=== PATIENT | female | born 1985 | race Caucasian/White ===

== ENCOUNTER → 2017-06-05 23:55 | Observation (INO) ==
--- NOTE | 2017-06-05 18:46 | OB/GYN History & Physical ---
Date of Encounter: 06/05/17 Time of Encounter: 18:40 Assessment and Plan (1) 36 weeks gestation of Current visit: Yes Status: Acute monitoring, recheck for cervical change at 2 hour intervals (2) History of delivery, currently in third trimester Current visit: Yes Status: Acute (3) Grand multipara Current visit: Yes Status: Acute History of Present Illness Chief complaint: increased contractions HPI: Ms. Ashton is a 31 year old female at 36.5 weeks gestation with a history of deliveries at 36 weeks in 5 of her 6 children who presents for increased contractions, abdominal and back pain. She denies loss of fluid, vaginal bleeding, dizziness, headache, blurred vision. Reports good movement. Labs: GBS negative, rubella immune, all other labs wnl Past Med Surg Social Fam HX - Past Medical History Medical history: cancer, other Psychiatric history: no psych history - Past Surgical History Surgical History: other - Social History Smoking Status: Never smoker Smokeless Tobacco Status: No Alcohol use: none Drug use: none - Family History Mother Adopted: No Age: 52 Family Member Ethnicity: Non- Living Status: Still Living Hx Family Cardiac Disorders: No Hx Family Respiratory Disorders: No Hx Family Cancer: No Hx Family GI Disorders: Yes (chron's disease and colitis) Hx Family Genitourinary Disorders: No Hx Family Endocrine Disorder: No Hx Family Musculoskeletal Disorders: No Hx Family Neuromuscular Disorders: No Hx Family Neurologic Disorders: No Hx Family HEENT Disorders: No Hx Family Autoimmune Disorders: No Hx Family Reproductive Disorders: No Hx Family Psychosocial Disorders: No Hx Family Medical Disorders: No Obstetrical History - Pregnancies : 8 Para: 6 Term: 1 : 5 Ab's: 1 Livin Medications and Allergies Vit #105/Iron/FA/Dha 1 tab PO DAILY 06/05/17 [History] Allergies No Known Allergies Allergy (Verified 11/15/16 20:05) Review of System OB - Constitutional Constitutional ROS IM: as per HPI Exam - Constitutional Constitutional: well developed, well nourished, no acute distress, average body habitus - HEENT HEENT: Normocephaly, Mucus Membranes Moist - Neck Neck exam: normal inspection - Lungs Respiratory exam: CTAB - Cardiovascular Cardiovascular exam: RRR, +S1, +S2 - Breasts Breast: bilateral: normal - Abdomen Abdomen: Present: bowel sounds normal, gravid, non tender - Extremities Extremities exam: normal capillary refill, normal inspection - Cervix Dilation: 3 Effacement: 50 Station: -3 Results All other labs normal.
--- NOTE | 2017-06-05 23:52 | OB/GYN Progress Note ---
Date of Encounter: 06/05/17 Time of Encounter: 23:50 - Assessment and Plan (1) 36 weeks gestation of Current Visit: Yes Status: Acute discharge home (2) History of delivery, currently in third trimester Current Visit: Yes Status: Acute (3) Grand multipara Current Visit: Yes Status: Acute Subjective - Subjective Principal diagnosis: contractions Interval history: Ms. Ashton has been in L&D from 5pm until 12pm and made 1cm of change in her cervix. She would like labor at home and will come back when she feels increased intensity to her contractions. Objective - Vital Signs Vital Signs: Intake and Output 06/05/17 06/05/17 06/05/17 07:59 15:59 23:59 Other: Weight 86.7 kg Patient Weight 06/05/17 23:59 Weight 86.7 kg - Exam FHR comments: reactive FHT Auscultation: bilateral: normal Abdomen: Present: normal appearance, soft, gravid Cervical dilation: 4 Cervix effacement: 70 station: -2
== END | disposition home or self-care (01) ==
LOC: 1NENULAB
PROVIDERS: ADMIT Student in an Organized Health Care Education/Training Program; ATTEND Student in an Organized Health Care Education/Training Program

== ENCOUNTER 2017-06-07 17:43 | Inpatient (IN) ==
[~2017-06-07 17:43] MED LIST: Famotidine 20 MG/2 ML VIAL IVP PRN; Naloxone 0.4 MG/ML INJ IVP PRN; Ondansetron 4 MG/2 ML VIAL IVP PRN
[2017-06-07] MEDS ORDERED: Ringers Solution, Lactated 1,000 ML IVC SCH (17:45)
--- NOTE | 2017-06-07 17:52 | OB/GYN History & Physical ---
Date of Encounter: 06/07/17 Time of Encounter: 17:45 Assessment and Plan (1) and not yet delivered in third trimester Current visit: Yes Status: Acute (2) 37 weeks gestation of Current visit: Yes Status: Acute (3) Grand multipara Current visit: No Status: Acute (4) Active labor Current visit: Yes Status: Acute We will admit the patient plan is to anticipate vaginal delivery History of Present Illness HPI: Ms. Ashton is a 31 year old female 9 para 6026 and 37-0/7 weeks who presented to labor and delivery from the office with complaint of contractions. Patient has a history of delivering her baby is around 36 weeks and has been making cervical change. Patient was seen last in the office was 2 cm. Patient had presented to labor and delivery Wednesday complaining of contractions patient progressed to 3-4 cm did not want to stay around and went home. She was seen in the office today was noted to still be approximately 3-4 but the head appeared to be low and she was complaining of worsening contractions. She was sent to labor and delivery where she was noted to be brenda she was allowed to ambulate she was reassessed was noted to make cervical change was a good 4 cm and an hour later she was 5 cm. Patient has a history of going quickly after 4-5 cm and does not want an epidural. Patient's GBS was already performed and was negative rubella positive, Rh+ denies any leaking of fluid but states contractions every 2-3 minutes. Patient is wanting a tubal ligation papers have been signed Past Med Surg Social Fam HX - Past Medical History Source: patient, old records reviewed Medical history: cancer, other Psychiatric history: no psych history - Past Surgical History Surgical History: other (LEEP conization, dilatation and curettage) - Social History Smoking Status: Never smoker Smokeless Tobacco Status: No Alcohol use: none Drug use: none Occupational status: unemployed Current living situation: Home - Independent Activity Level: Independent ambulation Recent Out of Country Travel Within the Last 8 Weeks: No Exposure or Possible Exposure to Illness During Travel: No - Family History Mother Adopted: No Family Member Ethnicity: Non- Living Status: Still Living Hx Family Cardiac Disorders: No Hx Family Respiratory Disorders: No Hx Family Cancer: No Hx Family GI Disorders: Yes (chron's disease and colitis) Hx Family Endocrine Disorder: No Hx Family Neuromuscular Disorders: No Hx Family Neurologic Disorders: No Hx Family HEENT Disorders: No Hx Family Autoimmune Disorders: No - Additional Family History Additional family history: Family history noncontributory Obstetrical History - Pregnancies : 9 Para: 6 Term: 1 : 5 Ab's: 2 Livin Medications and Allergies Vit #105/Iron/FA/Dha 1 tab PO DAILY 06/05/17 [History] Allergies No Known Allergies Allergy (Verified 11/15/16 20:05) Review of System OB All systems PM: reviewed and no additional remarkable complaints except as stated Exam - Constitutional Constitutional: well developed, well nourished, average body habitus, moderate distress - HEENT HEENT: PERRL - Neck Neck exam: full ROM - Lungs Respiratory exam: CTAB - Cardiovascular Cardiovascular exam: RRR - Abdomen Abdomen: Present: bowel sounds normal, gravid - Cervix Dilation: 5 Effacement: 80 Station: 0 Results All other labs normal. - VTE Reasons for not Prescribing Prophylaxis: Treatment not Indicated - Low risk for VTE
[2017-06-07 18:18] LABS: Basophils % 0.2 %; Eosinophils # 0.1 K/mcL (0.0-0.6); Hematocrit 35.4 % (35.3-44.9); Hemoglobin 11.9 g/dL (11.5-15.4); Immature Granulocytes % 0.7 % (0-4); Lymphocytes # 1.5 K/mcL (0.6-4.6); Lymphocytes % 25.7 %; Mean Corpuscular HGB Conc 33.6 g/dL (31.6-35.5); Mean Corpuscular Hemoglobin 29.8 pg (28.0-33.3); Mean Corpuscular Volume 88.5 fL (83.0-100.0); Mean Platelet Volume 11.6 fL (9.4-12.4); Monocytes # 0.5 K/mcL (0.0-1.3); Monocytes % 8.6 %; Neutrophils # 3.7 K/mcL (1.6-8.9); Platelet Count 191 K/mcL (140-400); Red Cell Distribution Width 14.2 % (11.5-14.5); Segmented Neutrophils % 63.8 %
--- NOTE | 2017-06-07 18:37 | OB Labor Progress Note ---
Date of Encounter: 06/07/17 Time of Encounter: 18:30 Labor Progress Note - Subjective Subjective: states contractions are getting stronger - Cervix Cervix: 5-6/80/0 AROM large amt of fluid clear - Heart Tones Heart Tones: FHT 140's reactive - [place]: contractions every 2 min - Plan Plan: anticipate
[2017-06-07] MEDS ORDERED: miSOPROStol 100 MCG TABLET PO ONE (19:45)
--- NOTE | 2017-06-07 20:11 | OB Labor Progress Note ---
Date of Encounter: 06/07/17 Time of Encounter: 20:10 Labor Progress Note - Subjective Subjective: states feeling contraction but irregular, recommended cytotec to help get contractions regular - Cervix Cervix: 5-6/80/0 - Heart Tones Heart Tones: FHT's 140 reactive - [place]: contractions every 2 -3 min irregular - Plan Plan: will try some cytotec anticipate
[2017-06-07] MEDS ORDERED: *HR* FentaNYL (PF) 100 MCG/2 ML VIAL IVP ONE (21:30)
--- NOTE | 2017-06-07 23:07 | OB/GYN Procedure Note ---
Delivery - Delivery Date: 06/07/17 Provider: Syd [facility] Intrapartum events: none Delivery induction: none Delivery augmentation: rupture of membranes Delivery monitor: external FHT, external uterine Anesthesia: none Estimated Blood Loss: 100 - Infant (s) Infant A Delivery Date: 06/07/17 Infant Delivery Time: 22:36 Presentation: vertex Position: RL Route of delivery: Gender: Male Viability: Viable Pounds: 6 Ounces: 11 Weight Gram: 3.025 kg at 1 minute: 8 at 5 mins: 9 Shoulder Dystocia: not encountered Specimens collected: cord blood Placenta: spontaneous - Repair Episiotomy: none Laceration Description: None - Complications Delivery complications: none Delivery comments: Patient is a 31-year-old 9 para 1526 at 37-0/7 weeks who was sent from the office secondary to contractions with cervical change. Patient was seen last week in the office and was 2 cm she states she came to labor and delivery of the weekend had made cervical change her gone from 3-3-4 cm but did not want to stay in left. Patient's today in the office with a good 4 cm and was complaining a lot of back pain and contractions. Patient has a history of delivering all of her babies around 36 weeks and goes very fast. Presented to labor and delivery where she was noted to be brenda patient continued to make cervical change on first exam she was a good 4 cm and went to 5 been to 6 cm. Patient was then artificially ruptured with clear fluid. Because of some situations going on labor and delivery side this time to try to expedite her delivery 50 g of Cytotec by mouth was given to help speed up her contractions. This did work patient's contractions became more uncomfortable patient did not want an epidural patient progressed rapidly she had to 9 cm wanted to push. Throughout the patient push the cervix was reduced and patient delivered a viable male in left occiput anterior presentation at 2236. There was no nuchal cord, no meconium, infant was bulb suctioned on the abdomen, Apgars were 8 at one minutes, 9 at 5 months, weight was 6 lbs. 11 oz. 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 Perineum cervix vagina was all visualized intact. Patient recently was wanting to get a tubal ligation did recommend waiting 6 weeks and we could laparoscopically. All needles AND sponge counts were correct 3 she tolerated the delivery well. She will be observed one hour before being taken floor. - Disposition Mom disposition: stable in LDR [place] disposition: stable in LDR
[2017-06-07] MEDS ORDERED: Oxytocin 20 units/ LR 1000 mL 20 UNIT/1,000 ML BAG IVC SCH (23:42)
[2017-06-07] MEDS ORDERED: Measles/Mumps/Rubella Vacc 0.5 ML VIAL SQ PRN (23:42)
[2017-06-07] MEDS ORDERED: Acetaminophen 325 MG TABLET PO PRN (23:42)
[2017-06-08] MEDS: Ibuprofen 600 MG TABLET PO PRN ×4 (00:50→22:34)
[2017-06-08] MEDS: Prenatal Vit/FA 1 EACH TABLET PO SCH (08:33)
[2017-06-08] MEDS ORDERED: Prenatal Vit/FA 1 EACH TABLET PO SCH (09:00)
--- NOTE | 2017-06-08 09:06 | OB/GYN Progress Note ---
Date of Encounter: 06/08/17 Time of Encounter: 09:04 - Assessment and Plan (1) Status post vaginal delivery Current Visit: Yes Status: Acute Pt meeting PPD#1 milestones. Anticipate discharge home PPD#2 Subjective - Subjective Principal diagnosis: S/P Vaginal Delivery PPD1 Patient reports: voiding normally, pain well controlled, ambulating normally, other (decreased appetite, mild cramping) : doing well Objective - Latest Vital Signs Latest vital signs: Vital Signs Temp Pulse Resp BP Pulse Ox 06/08/17 08:28 97.8 F 66 16 115/71 99 06/08/17 04:59 97.9 F 74 18 115/71 95 06/08/17 02:20 98.0 F 76 16 125/80 98 06/08/17 01:20 98.2 F 87 14 120/75 98 06/08/17 00:21 97.8 F 70 16 131/83 97 Intake and Output 06/07/17 06/08/17 06/08/17 23:59 07:59 15:59 Output Total 200 / 200 Balance -200 / -200 Output: Urine 200 / 200 Other: Stool Size Small Stool Characteristics Normal for Patient Normal for Patient Weight 83.3 kg Patient Weight 06/08/17 23:59 Weight 83.3 kg - Exam Lungs: bilateral: normal Chest: Normal S1, Normal S2 Extremities: Present: normal Abdomen: Present: normal appearance Uterus: Present: normal Uterus Position: 1 Finger Above Umbilicus - Labs Labs: Laboratory Results - last 24 hr 06/07/17 18:00 WBC 5.8 RBC 4.00 Hgb 11.9 Hct 35.4 MCV 88.5 MCH 29.8 MCHC 33.6 RDW 14.2 Plt Count 191 MPV 11.6 Immature Gran % 0.7 Seg Neutrophils % 63.8 Lymphocytes % 25.7 Monocytes % 8.6 Eosinophils % 1.0 Basophils % 0.2 Neutrophils # 3.7 Lymphocytes # 1.5 Monocytes # 0.5 Eosinophils # 0.1 Basophils # 0.0
[2017-06-09 08:25] VITALS: BP 117/84
[2017-06-09] MEDS: Prenatal Vit/FA 1 EACH TABLET PO SCH (08:36)
[2017-06-09] MEDS: Ibuprofen 600 MG TABLET PO PRN (08:37)
--- NOTE | 2017-06-09 10:21 | Discharge Summary ---
Date of Encounter: 06/09/17 Time of Encounter: 10:19 - Discharge Diagnosis (1) Vaginal delivery Priority: Primary Status: Acute Comments: Pt states feels well. pain well managed on po pain medication, bleeding minimal , bottlefeeding, desires discharge - Discharge Medications Prescriptions: Ibuprofen [Motrin] 600 mg PO Q6HR PRN #60 tab PRN Reason: Pain Home Medications: Vit #105/Iron/FA/Dha 1 tab PO DAILY 06/05/17 [History] Acetaminophen [Tylenol] 650 mg PO Q6HR PRN tab 06/09/17 [Rx] Docusate [Colace] 100 mg PO BID 06/09/17 [Rx] Ibuprofen [Motrin] 600 mg PO Q6HR PRN #60 tab 06/09/17 [Rx] Vit/FA 1 each PO DAILY tab 06/09/17 [Rx] Allergies/Adverse Reactions: Allergies No Known Allergies Allergy (Verified 11/15/16 20:05) Data Procedures and tests throughout hospitalization: Laboratory Tests 06/07/17 18:00 WBC 5.8 RBC 4.00 Hgb 11.9 Hct 35.4 MCV 88.5 MCH 29.8 MCHC 33.6 RDW 14.2 Plt Count 191 MPV 11.6 Immature Gran % 0.7 Seg Neutrophils % 63.8 Lymphocytes % 25.7 Monocytes % 8.6 Eosinophils % 1.0 Basophils % 0.2 Neutrophils # 3.7 Lymphocytes # 1.5 Monocytes # 0.5 Eosinophils # 0.1 Basophils # 0.0 Date of admission: 06/07/17 17:43 Primary care physician: Blayne Coleman MD Consults: 06/07/17 23:42 Consult to Associate Java Developer [CONS] Routine Comment: Vaginal delivery, consult needed Discharging clinician: Amara Riddle Anticipated date of discharge: 06/09/17 - Patient Status Disposition: Home, Self-Care Condition: Good Functional capacity at discharge: independent ambulation Overall status at discharge: patient is back to baseline - Discharge Instructions Follow Up With: Blayne Coleman MD [Primary Care Provider] - Syd [facility] DO [Partnered Physician] - - Diet and Activity Activity: resume usual activities as tolerated Diet: regular diet Hospital Course Reason for admission: active labor Delivery: Episiotomy: none Laceration: none Other procedures: none complications: none Discharge diagnosis: IUP at term delivered [place] baby: male Hospital course: Delivery - Delivery Date: 06/07/17 Provider: Syd Maldonado Intrapartum events: none Delivery induction: none Delivery augmentation: rupture of membranes Delivery monitor: external FHT, external uterine Anesthesia: none Estimated Blood Loss: 100 - Infant (s) Infant A Infant Delivery Date: 06/07/17 Infant Delivery Time: 22:36 Presentation: vertex Position: RL Route of delivery: Gender: Male Viability: Viable Pounds: 6 Ounces: 11 Weight Gram: 3.025 kg at 1 minute: 8 at 5 mins: 9 Shoulder Dystocia: not encountered Specimens collected: cord blood Placenta: spontaneous - Repair Episiotomy: none Laceration Description: None - Complications Delivery complications: none Delivery comments: Patient is a 31-year-old 9 para 1526 at 37-0/7 weeks who was sent from the office secondary to contractions with cervical change. Patient was seen last week in the office and was 2 cm she states she came to labor and delivery of the weekend had made cervical change her gone from 3-3-4 cm but did not want to stay in left. Patient's today in the office with a good 4 cm and was complaining a lot of back pain and contractions. Patient has a history of delivering all of her babies around 36 weeks and goes very fast. Presented to labor and delivery where she was noted to be brenda patient continued to make cervical change on first exam she was a good 4 cm and went to 5 been to 6 cm. Patient was then artificially ruptured with clear fluid. Because of some situations going on labor and delivery side this time to try to expedite her delivery 50 g of Cytotec by mouth was given to help speed up her contractions. This did work patient's contractions became more uncomfortable patient did not want an epidural patient progressed rapidly she had to 9 cm wanted to push. Throughout the patient push the cervix was reduced and patient delivered a viable male infant in left occiput anterior presentation at 2236. There was no nuchal cord, no meconium, infant was bulb suctioned on the abdomen, Apgars were 8 at one minutes, 9 at 5 months, infant weight was 6 lbs. 11 oz. 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 Perineum cervix vagina was all visualized intact. Patient recently was wanting to get a tubal ligation did recommend waiting 6 weeks and we could laparoscopically. All needles AND sponge counts were correct 3 she tolerated the delivery well. She will be observed one hour before being taken floor. - Disposition Mom disposition: stable in LDR [place] disposition: stable in LDR Time Attestation: Total time spent providing and/or coordinating discharge services: Time Spent: Less than 30 minutes Exam - Constitutional Vitals: Temp Pulse Resp BP Pulse Ox 97.7 F 59 16 117/84 99 06/09/17 08:21 06/09/17 08:21 06/09/17 08:21 06/09/17 08:21 06/09/17 08:21 General appearance IM: A&O X 3 - Respiratory Respiratory exam: Present: CTAB - Cardiovascular Cardiovascular exam IM: Present: RRR, +S1, +S2 - GI/Abdominal GI/Abdominal exam IM: soft - Uterine Tone: Firm Uterus Position: At Umbilicus - Extremities Exam Extremities exam IM: Present: normal capillary refill, normal inspection - Neurological Exam Neurological exam: normal gait, oriented X3 - Psychiatric Additional comments: reports good mood
== END 2017-06-09 13:00 | disposition home or self-care (01) | DRG 560 ==
LOC: 1NENULAB → 1NENUOBS 06-08 00:13
PROVIDERS: ADMIT Obstetrics & Gynecology; ATTEND Obstetrics & Gynecology

== ENCOUNTER 2019-01-23 21:32 | Inpatient (IN) ==
[2019-01-23 12:24] LABS: Basophils % 0.2 %; Eosinophils % 0.4 %; Hematocrit 36.3 % (35.3-44.9); Hemoglobin 12.8 g/dL (11.5-15.4); Immature Granulocytes % 1.5 % (0-4); Mean Corpuscular HGB Conc 35.3 g/dL (31.6-35.5); Mean Corpuscular Hemoglobin 31.4 pg (28.0-33.3); Mean Corpuscular Volume 89.2 fL (83.0-100.0); Mean Platelet Volume 11.4 fL (9.4-12.4); Monocytes # 0.5 K/mcL (0.0-1.3); Monocytes % 8.5 %; Neutrophils # 3.9 K/mcL (1.6-8.9); Platelet Count 169 K/mcL (140-400); Red Blood Count 4.07 M/mcL (3.82-4.97); Red Cell Distribution Width 14.6 % (11.5-14.5); Segmented Neutrophils % 71.4 %
[2019-01-23 12:33] LABS: Amphetamine Screen,Urine Negative ng/mL (Cutoff=1000); Barbiturate Screen,Urine Negative ng/mL (Cutoff=200); Benzodiazepines Screen,Urine Negative ng/mL (Cutoff=200); Cannabinoid Screen,Urine Negative ng/mL (Cutoff = 50); Cocaine Screen,Urine Negative ng/mL (Cutoff= 300); Opiate Screen,Urine Negative ng/mL (Cutoff=300); Phencyclidine Screen,Urine Negative ng/mL (Cutoff=25)
--- NOTE | 2019-01-23 17:49 | OB/GYN History & Physical ---
Date of Encounter: 01/23/19 Time of Encounter: 17:44 Assessment and Plan (1) labor in third trimester Current visit: Yes Status: Acute We will continue to watch patient it continues make cervical change we will admit and artificial rupture. Qualifiers: labor delivery status: without delivery Qualified Code(s): O60.03 - labor without delivery, third trimester (2) 36 weeks gestation of Current visit: No Status: Acute (3) Grand multipara Current visit: No Status: Acute (4) and not yet delivered in third trimester Current visit: No Status: Acute (5) Positive GBS test Current visit: Yes Status: Acute We will start penicillin and give first dose and continue if patient stays History of Present Illness HPI: Ms. Ashton is a 33 year old female 10 para 2527 at 36-6/7 weeks who presents to labor and delivery for the office secondary to labor. Patient stated that she been having contractions all week and on Wednesday they were coming every 5 minutes patient states she knows when she is truly in labor and stayed home she states they have eased up little bit but still uncomfortable patient when seen in the office was 4-5 cm and -3 station patient has a history of delivering her children between 36 and [address] She will start out with irregular contractions that are difficult to pickle cutter and then within 4-6 hours patient is typically 6-7 cm and delivers. She is not wanting any type of anesthetic no IV medicine or epidural. Patient was sent to labor and delivery for prolonged monitoring since she lives over an hour from the hospital. Patient was having contractions after approximately 2 hours was reevaluated was noted to be 5 cm. The patient ambulates and after approximately 2-3 more hours patient was still 5 cm however she gone from a -3 to -1 station with bulging membranes. Patient is GBS positive we did go ahead and give her first dose of antibiotics since she does have a history of a rapidly so we could potentially get 2 doses and if she was to stay. She denies any leaking of fluid or vaginal bleeding. Patient states contractions are getting more uncomfortable even know where not picking them up on the monitors. Patient's previous pregnancies with similar we did not see contractions however patient continued to make cervical change. Recommended patient get up on the control when she gets to 6-7 cm we will then admit the patient and proceed on with delivery. Patient is GBS positive, rubella positive, O+,Varicella positive Past Med Surg Social Fam HX - Past Medical History Source: patient, old records reviewed Medical history: other Additional medical history: cervical dysplasia Psychiatric history: no psych history - Past Surgical History Surgical History: other Additional surgical history: LEEP, Vocal cord surgery - Social History Smoking Status: Never smoker Smokeless Tobacco Status: No Alcohol use: none Drug use: none Current living situation: Home - Independent Activity Level: Independent ambulation Recent Out of Country Travel Within the Last 8 Weeks: No Exposure or Possible Exposure to Illness During Travel: No - Family History Mother Adopted: No Family Member Ethnicity: Non- Living Status: Still Living Hx Family Cardiac Disorders: Yes (mitral valve prolapse) Hx Family Respiratory Disorders: No Hx Family Cancer: No Hx Family GI Disorders: Yes (colitis, crohns) Hx Family Endocrine Disorder: No Hx Family Neuromuscular Disorders: No Hx Family Neurologic Disorders: No Hx Family HEENT Disorders: No Hx Family Autoimmune Disorders: No - Additional Family History Additional family history: Family history noncontributory Obstetrical History - Pregnancies : 10 Para: 7 Term: 2 : 5 Ab's: 2 Livin Medications and Allergies Vit/FA 1 each PO DAILY tab 06/09/17 [Rx] predniSONE [PredniSONE] 10 mg PO DAILY 01/23/19 [History] Allergy/AdvReac Type Severity Reaction Status Date / Time No Known Allergies Allergy Verified 11/15/16 20:05 Review of System OB All systems PM: reviewed and no additional remarkable complaints except as stated Exam - Constitutional Constitutional: well developed, well nourished, moderate distress - HEENT HEENT: EOMI, PERRL, Mucus Membranes Moist - Neck Neck exam: full ROM - Lungs Respiratory exam: CTAB - Cardiovascular Cardiovascular exam: RRR - Abdomen Abdomen: Present: bowel sounds normal, gravid ( heart tones 140s and reactive contractions every 3-5 minutes) - Cervix Dilation: 5 Effacement: 80 Station: -1 Results Result Diagrams: 01/23/19 12:04 Abnormal lab results RDW 14.6 % (11.5-14.5) H 01/23/19 12:04 All other labs normal. - VTE Reasons for not Prescribing Prophylaxis: Treatment not Indicated - Low risk for VTE
--- NOTE | 2019-01-23 19:06 | OB Labor Progress Note ---
Date of Encounter: 01/23/19 Time of Encounter: 19:01 Labor Progress Note - Subjective Subjective: patient states she is feeling more contractions, she getting more uncomfortable and feeling more pressure. She states she does not have a contractions typically in her abdomen they are in the pelvis. When questioned how often she is feeling that she states some attentiveness apart but they getting closer to 7 minutes. - Cervix Cervix: 6/80/0 buldging membranes AROM clear fluid - Heart Tones Heart Tones: heart tones 140s reactive - [place]: Contractions every 3-5 minutes - Interventions Interventions: We will admit patient and anticipate vaginal delivery
--- NOTE | 2019-01-23 20:26 | OB Labor Progress Note ---
Date of Encounter: 01/23/19 Time of Encounter: 20:24 Labor Progress Note - Subjective Subjective: patient states contractions are getting stronger, - Cervix Cervix: 6/80/0 - Heart Tones Heart Tones: Heart tones 140s reactive - [place]: Contractions every 3-5 minutes difficult to pharmacy picking tech one on the control better when in bed. - Interventions Interventions: Due to some logistics on labor and delivery decided to go ahead and augment patient to try to speed up her labor, will augment with pitocin
[~2019-01-23 21:32] MED LIST changes: +*HR* Nalbuphine 10 MG/ML AMPUL IVP PRN; +Metoclopramide 10 MG/2 ML VIAL IVP PRN; +Oxytocin 20 units/ LR 1000 mL 20 UNIT/1,000 ML BAG IVC ONE; +Oxytocin 20 units/ LR 1000 mL 20 UNIT/1,000 ML BAG IVC SCH; +Penicillin G Potassium 2,500,000 UNIT in 0.9 % Sodium Chloride 100 ML IVPB SCH; +Penicillin G Potassium 5,000,000 UNIT in 0.9 % Sodium Chloride Mini Bag 100 ML IVPB ONE; +Ringers Solution, Lactated 1,000 ML IVC SCH; +Ringers Solution, Lactated 1,000 ML ONE
--- NOTE | 2019-01-23 23:55 | OB/GYN Procedure Note ---
Delivery - Delivery Date: 01/23/19 Provider: Syd Maldonado Intrapartum events: none Delivery induction: none Delivery augmentation: rupture of membranes, pitocin Delivery monitor: external FHT, external uterine Anesthesia: none Quantitated Blood Loss: 100 - (s) A Delivery Date: 01/23/19 Delivery Time: 23:19 Presentation: vertex Position: CECILIA Route of delivery: Gender: Male Viability: Viable Pounds: 7 Ounces: 12 Weight Gram: 3.51 kg at 1 minute: 6 at 5 mins: 8 Shoulder Dystocia: not encountered Specimens collected: cord blood Placenta: spontaneous Cord: 3 umbilical vessels - Repair Episiotomy: none Laceration Description: None - Complications Delivery complications: none Delivery comments: Patient is a 33-year-old 10 para 2527 at 36-6/7 weeks who presented to labor and delivery from the office secondary to labor. Patient states she been brenda all weekend and was waiting for her appointment today to determine if she was in labor. Patient was examined was noted to be 4-5 cm. Patient last examination was only 1-2 patient has a history of delivering her baby's between 36 and 37 weeks. She has history of precipitous deliveries when she is in active labor and by 7 out of the hospital so she was sent to labor and delivery for prolonged monitoring. Patient was observed was having contractions every 7-10 minutes after approximately 2 hours patient was a good 5 cm patient was continues to walk she was allowed to ambulate on next examination patient was 5-6 with bulging membranes and -1 station. Patient was GBS positive and did go ahead and initiate her penicillin what we were observing her just in case she did not go into precipitous labor. Patient continued to complain of worsening contractions when she was reassessed she was 6 cm 0 station with bulging membranes. This side this time patient would be admitted and would go ahead and get her delivered she was artificially ruptured to expedite delivery. Patient after approximately 1 hour remained 6 cm and we decided due to some other circumstances on labor and delivery. Augment the patient with some Pitocin to speed things up. This was started patient started progress rapidly at approximately 8 to 9 cm and had a strong urge to push and insisted on pushing reassess the patient had her push a few times but we are having difficulty reducing the cervix. We are able to have the patient just breathes through some contractions after approximately 20 minutes patient pushed 1 time the cervix reduced and she immediately delivered a viable male infant in right occiput anterior presentation at 2118. There was no nuchal cord, no meconium, infant was bulb suctioned on the abdomen. Apgars were 6 at 1 minute 8 at 5 minutes infant weight was 7 lbs. 12 oz. Placenta delivered spontaneously. 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 Perineum cervix and vagina was visualized intact, started to have some retractions and was taken to the nursery. All needle/sponge counts were correct 3 she will be observed one hour is stable she will be discharged to the floor so she can go and be with the baby in the nursery. - Disposition Mom disposition: stable in LDR [place] disposition: stable in LDR
[2019-01-24] MEDS ORDERED: Oxytocin 20 units/ LR 1000 mL 20 UNIT/1,000 ML BAG IVC SCH (00:12)
[2019-01-24] MEDS: Ibuprofen 600 MG TABLET PO PRN ×3 (00:19→17:10)
[2019-01-24 08:26] LABS: Basophils % 0.3 %; Eosinophils % 0.2 %; Hematocrit 33.8 % (35.3-44.9); Hemoglobin 11.8 g/dL (11.5-15.4); Immature Granulocytes % 0.7 % (0-4); Lymphocytes # 1.8 K/mcL (0.6-4.6); Lymphocytes % 18.9 %; Mean Corpuscular HGB Conc 34.9 g/dL (31.6-35.5); Mean Corpuscular Hemoglobin 31.2 pg (28.0-33.3); Mean Corpuscular Volume 89.4 fL (83.0-100.0); Mean Platelet Volume 11.5 fL (9.4-12.4); Monocytes # 0.6 K/mcL (0.0-1.3); Monocytes % 6.6 %; Neutrophils # 6.9 K/mcL (1.6-8.9); Platelet Count 176 K/mcL (140-400); Red Blood Count 3.78 M/mcL (3.82-4.97); Red Cell Distribution Width 14.5 % (11.5-14.5); Segmented Neutrophils % 73.3 %
[2019-01-24] MEDS: Prenatal Vit/FA 1 EACH TABLET PO SCH (08:37)
[2019-01-24] MEDS: Acetaminophen 325 MG TABLET PO PRN ×2 (08:44→22:42)
[2019-01-24] MEDS ORDERED: Prenatal Vit/FA 1 EACH TABLET PO SCH (09:00)
--- NOTE | 2019-01-24 11:36 | OB/GYN Progress Note ---
Date of Encounter: 01/24/19 Time of Encounter: 11:34 - Assessment and Plan (1) Vaginal delivery Current Visit: No Status: Acute Continue routine care Anticipate discharge home tomorrow Subjective - Subjective Principal diagnosis: s/p Interval history: Feeling well. Out of bed without dizziness. Some perineal discomfort-using ice pack. Cramping minimal, using ibuprofen. Bottlefeeding. Voiding without difficulty. Passing flatus, no BM yet. Tolerating regular diet. Patient reports: appetite normal, voiding normally, pain well controlled, ambulating normally [place]: doing well, bottle feeding Objective - Latest Vital Signs Latest vital signs: Vital Signs Temp Pulse Resp BP Pulse Ox 01/24/19 08:10 97.6 F 79 16 101/69 99 01/24/19 03:30 98.0 F 84 16 115/70 01/24/19 01:26 98.0 F 85 18 120/77 01/24/19 01:12 98.0 F 75 16 122/77 97 Intake and Output 01/23/19 01/24/19 01/24/19 23:59 07:59 15:59 Intake Total 800 / 800 Output Total 100 / 100 300 / 300 Balance -100 / -100 500 / 500 Intake: Oral 800 / 800 Output: Urine 100 / 100 300 / 300 Other: Meal Breakfast Percent of Meal Consumed 75% - Exam Lungs: bilateral: normal Chest: Normal S1, Normal S2 Extremities: Present: normal Abdomen: Present: normal appearance, soft Uterus: Present: normal, firm Uterus Position: At Umbilicus, Midline - Labs Labs: Laboratory Results - last 24 hr 01/23/19 01/23/19 01/23/19 11:50 12:04 12:49 WBC 5.4 RBC 4.07 Hgb 12.8 Hct 36.3 MCV 89.2 MCH 31.4 MCHC 35.3 RDW 14.6 H Plt Count 169 MPV 11.4 Immature Gran % 1.5 Seg Neutrophils % 71.4 Lymphocytes % 18.0 Monocytes % 8.5 Eosinophils % 0.4 Basophils % 0.2 Neutrophils # 3.9 Lymphocytes # 1.0 Monocytes # 0.5 Eosinophils # 0.0 Basophils # 0.0 Urine Opiates Screen Negative Ur Barbiturates Screen Negative Ur Phencyclidine Scrn Negative Ur Amphetamines Screen Negative U Benzodiazepines Scrn Negative Urine Cocaine Screen Negative U Marijuana (THC) Screen Negative Ur Drug Screen Interp See Below Hep Bs Antigen Nonreactive 01/24/19 08:04 WBC 9.4 D RBC 3.78 L Hgb 11.8 Hct 33.8 L MCV 89.4 MCH 31.2 MCHC 34.9 RDW 14.5 Plt Count 176 MPV 11.5 Immature Gran % 0.7 Seg Neutrophils % 73.3 Lymphocytes % 18.9 Monocytes % 6.6 Eosinophils % 0.2 Basophils % 0.3 Neutrophils # 6.9 Lymphocytes # 1.8 Monocytes # 0.6 Eosinophils # 0.0 Basophils # 0.0 Urine Opiates Screen Ur Barbiturates Screen Ur Phencyclidine Scrn Ur Amphetamines Screen U Benzodiazepines Scrn Urine Cocaine Screen U Marijuana (THC) Screen Ur Drug Screen Interp Hep Bs Antigen
[2019-01-25 08:04] VITALS: BP 119/80
[2019-01-25] MEDS: Acetaminophen 325 MG TABLET PO PRN (08:08)
[2019-01-25] MEDS ORDERED: Bisacodyl 10 MG RECTAL SUPPOSITORY RC PRN (09:50)
--- NOTE | 2019-01-25 12:16 | Discharge Summary ---
Date of Encounter: 01/25/19 Time of Encounter: 12:12 - Discharge Diagnosis (1) Vaginal delivery Priority: Primary Status: Acute Comments: Pt meeting all milestones. She reports being tired and was having some LLQ pain that she believes is due to needing to have a BM. SInce having a BM the pain has improved. - Discharge Medications Prescriptions: New Ibuprofen [Motrin] 600 mg PO Q6HR PRN #30 tablet PRN Reason: Cramping Docusate [Colace] 100 mg PO BID #30 capsule Continue Vit/FA 1 each PO DAILY tab Discontinued predniSONE [PredniSONE] 10 mg PO DAILY Home Medications: Vit/FA 1 each PO DAILY tab 06/09/17 [Rx] Docusate [Colace] 100 mg PO BID #30 capsule 01/25/19 [Rx] Ibuprofen [Motrin] 600 mg PO Q6HR PRN #30 tablet 01/25/19 [Rx] Allergies/Adverse Reactions: Allergy/AdvReac Type Severity Reaction Status Date / Time No Known Allergies Allergy Verified 11/15/16 20:05 Data Procedures and tests throughout hospitalization: Laboratory Tests 01/23/19 01/23/19 01/23/19 11:50 12:04 12:49 WBC 5.4 RBC 4.07 Hgb 12.8 Hct 36.3 MCV 89.2 MCH 31.4 MCHC 35.3 RDW 14.6 H Plt Count 169 MPV 11.4 Immature Gran % 1.5 Seg Neutrophils % 71.4 Lymphocytes % 18.0 Monocytes % 8.5 Eosinophils % 0.4 Basophils % 0.2 Neutrophils # 3.9 Lymphocytes # 1.0 Monocytes # 0.5 Eosinophils # 0.0 Basophils # 0.0 Urine Opiates Screen Negative Ur Barbiturates Screen Negative Ur Phencyclidine Scrn Negative Ur Amphetamines Screen Negative U Benzodiazepines Scrn Negative Urine Cocaine Screen Negative U Marijuana (THC) Screen Negative Ur Drug Screen Interp See Below Hep Bs Antigen Nonreactive 01/24/19 08:04 WBC 9.4 D RBC 3.78 L Hgb 11.8 Hct 33.8 L MCV 89.4 MCH 31.2 MCHC 34.9 RDW 14.5 Plt Count 176 MPV 11.5 Immature Gran % 0.7 Seg Neutrophils % 73.3 Lymphocytes % 18.9 Monocytes % 6.6 Eosinophils % 0.2 Basophils % 0.3 Neutrophils # 6.9 Lymphocytes # 1.8 Monocytes # 0.6 Eosinophils # 0.0 Basophils # 0.0 Urine Opiates Screen Ur Barbiturates Screen Ur Phencyclidine Scrn Ur Amphetamines Screen U Benzodiazepines Scrn Urine Cocaine Screen U Marijuana (THC) Screen Ur Drug Screen Interp Hep Bs Antigen Date of admission: 01/23/19 21:32 Primary care physician: Blayne Coleman MD Consults: 01/24/19 00:12 Consult to Linen Controller [CONS] Routine Comment: Vaginal delivery, consult needed Discharging clinician: Vanessa Wlash Anticipated date of discharge: 01/25/19 - Patient Status Disposition: Home, Self-Care Condition: Good Functional capacity at discharge: independent ambulation Overall status at discharge: patient is progressing back to baseline - Discharge Instructions Follow Up With: Blayne Coleman MD [Primary Care Provider] - Syd Maldonado DO [Partnered Physician] - - Diet and Activity Activity: increase activity as tolerated Diet: regular diet Hospital Course Reason for admission: active labor Delivery: Episiotomy: none Laceration: none Other procedures: none complications: none Discharge diagnosis: delivery baby: male Hospital course: - Delivery Date: 01/23/19 Provider: Syd Maldonado Intrapartum events: none Delivery induction: none Delivery augmentation: rupture of membranes, pitocin Delivery monitor: external FHT, external uterine Anesthesia: none Quantitated Blood Loss: 100 - Infant (s) Infant A Infant Delivery Date: 01/23/19 Delivery Time: 23:19 Presentation: vertex Position: CECILIA Route of delivery: Gender: Male Viability: Viable Pounds: 7 Ounces: 12 Weight Gram: 3.51 kg at 1 minute: 6 at 5 mins: 8 Shoulder Dystocia: not encountered Specimens collected: cord blood Placenta: spontaneous Cord: 3 umbilical vessels - Repair Episiotomy: none Laceration Description: None - Complications Delivery complications: none Time Attestation: Total time spent providing and/or coordinating discharge services: Time Spent: Less than 30 minutes Exam - Constitutional Vitals: Temp Pulse Resp BP Pulse Ox 97.6 F 67 14 119/80 99 01/25/19 08:03 01/25/19 08:03 01/25/19 08:03 01/25/19 08:03 01/25/19 08:03 General appearance IM: A&O X 3 - Respiratory Respiratory exam: Present: CTAB - Cardiovascular Cardiovascular exam IM: Present: RRR, +S1, +S2 - GI/Abdominal GI/Abdominal exam IM: soft, no peritoneal signs - Uterine Tone: Firm Uterus Position: 1 Finger Below Umbilicus - Extremities Exam Extremities exam IM: Present: normal inspection - Neurological Exam Neurological exam: normal gait, oriented X3 - Psychiatric Additional comments: reports good mood
[2019-01-25] MEDS: Ibuprofen 600 MG TABLET PO PRN (13:07)
[2019-01-25] MEDS: Prenatal Vit/FA 1 EACH TABLET PO SCH (13:09)
== END 2019-01-25 13:35 | disposition home or self-care (01) | DRG 560 ==
LOC: 1NENULAB → 1NENUOBS 01-24 01:16
PROVIDERS: ADMIT Advanced Practice Midwife; ATTEND Advanced Practice Midwife